=== PATIENT | male | born 2000 | race Caucasian/White ===

== ENCOUNTER → 2023-09-12 06:36 | Day surgery (SDC) | payer OTHER, SELFPAY | LOC: GI 06:36 | PROVIDERS: ATTENDING PHYSICIAN Internal Medicine Gastroenterology | DX: K51.30 Ulcerative (chronic) rectosigmoiditis without complications (principal) | CPT/HCPCS: 45380; 88305 ==

== ENCOUNTER → 2023-09-16 12:16 | Outpatient (REF) | payer OTHER, SELFPAY | LOC: REG 12:16 | PROVIDERS: ATTENDING PHYSICIAN Internal Medicine Gastroenterology; FAMILY PHYSICIAN Pediatrics | DX: R19.7 Diarrhea, unspecified (principal) | CPT/HCPCS: 83993; 87045; 87046; 87077; 87324; 87427; 87449 ==